=== PATIENT | female | born 1960 | race Caucasian/White ===

== ENCOUNTER 2018-07-17 18:27 | Inpatient (IN) | payer MEDICARE ==
[2018-07-17 19:40] LABS: INR 1.04 (0.5-1.4); PROTHROMBIN TIME (TEST) 10.8 SECONDS (9.5-11.5)
[2018-07-17 19:47] LABS: ALBUMIN 3.3 gm/dL (3.7-5.3); ALKALINE PHOSPHATASE 122 U/L (34-104); ANION GAP 12.3 (7.0-16.0); BILIRUBIN,TOTAL 0.4 mg/dL (0.3-1.0); BUN - UREA NITROGEN 18 mg/dL (7-25); CALCIUM SERUM 8.6 mg/dL (8.6-10.3); CARBON DIOXIDE 31.8 mEq/L (21.0-31.0); CHLORIDE 72 mEq/L (98-107); GFR AFRICAN-AMERICAN > 60.0 ml/min (>90); GFR NON AFRICAN-AMERICAN > 60.0 ml/min; GLUCOSE 90 mg/dL (70-105); POTASSIUM SERUM 3.1 mEq/L (3.5-5.1); SGOT 17 U/L (13-39); SGPT/ALT 8 U/L (7-52); TOTAL PROTEIN,SERUM 6.7 gm/dL (6.0-8.3)
--- NOTE | 2018-07-17 19:47 | ED Physician Chart ---
ED Chief Complaint/HPI - Patient Information Date Seen:: 07/17/18 Time Seen:: 18:45 Chief Complaint:: weakness History of Present Illness:: THIS IS A 58 YO FEMALE SENT FROM THE [facility] FOR EVALUATION AND TREATMENT OF HER WEAKNESS. SHE HAS A HISTORY OF COPD, DM, HTN,CHF AND COLITIS. Allergies:: Allergies Allergy/AdvReac Type Severity Reaction Status Date / Time amoxicillin Allergy Verified 07/17/18 18:43 caffeine Allergy Verified 07/17/18 18:44 phenacetin Allergy Verified 07/17/18 18:44 Tetracyclines Allergy Verified 07/17/18 18:44 Vitals:: Vital Signs - 8 hr 07/17/18 18:30 Temp 96.3 F HR 86 RR 18 BP 106/69 O2 Sat % 95 Historian:: Patient, Medical Records Review:: Nurse's Note Reviewed, Old Chart Reviewed ED Review of Systems - Review of Systems General/Constitutional: No fever, No chills, No weight loss, Weakness, No diaphoresis, No edema, No loss of appetite Skin: No skin lesions, No rash, No bruising Head: No headache, No light-headedness Eyes: No loss of vision, No pain, No diplopia ENT: No earache, No nasal drainage, No sore throat, No tinnitus Neck: No neck pain, No swelling, No thyromegaly, No stiffness, No mass noted Cardio Vascular: No chest pain, No palpitations, No PND, No orthopnea, No edema Pulmonary: No SOB, Cough, No sputum, No wheezing GI: No nausea, No vomiting, No diarrhea, No pain, No melena, No hematochezia, No constipation, No hematemesis G/U: No dysuria, No frequency, No hematuria Musculoskeletal: No bone or joint pain, No back pain, No muscle pain Endocrine: No polyuria, No polydipsia Psychiatric: Prior psych history, No depression, No anxiety, No suicidal ideation Hematopoietic: No bruising, No lymphadenopathy Allergic/Immuno: No urticaria, No angioedema Neurological: No syncope, No focal symptoms, No weakness, No paresthesia, No headache, No seizure, No dizziness, No confusion, No vertigo ED Past Medical History - Past Medical History Obtainable: Yes Past Medical History: HTN, DM, CHF, Asthma/COPD, Dyslipidemia, Dementia Family History: None Social History: Smoker, No Alcohol, No Drug Use, Care Facility Surgical History: Appendectomy, Cholecystectomy, other (RIGHT OVARIAN SURGERY) Family Medical History - Family Member Mother History Unknown: Yes ED Physical Exam - Physical Examination General/Constitutional: Awake, Well-developed, well-nourished, Alert, No distress, GCS 15, Non-toxic appearing, Ambulatory Other Gen/Cons comments:: POORLY NOURISHED Head: Atraumatic Eyes: Lids, conjuctiva normal, PERRL, EOMI Skin: Nl inspection, No rash, No skin lesions, No ecchymosis, Well hydrated, No lymphadenopathy ENMT: External ears, nose nl, Nasal exam nl, Lips, teeth, gums nl Neck: Nontender, Full ROM w/o pain, No JVD, No nuchal rigidity, No bruit, No mass, No stridor Respiratory: Nl effort/Exclusion, Clear to Auscultation, No Wheeze/Rhonchi/ Rales (BILATERAL RHONCHI) Cardio Vascular: RRR, No murmur, gallop, rubs, NL S1 S2 GI: No tenderness/rebounding/guarding, No organomegaly, No hernia, Normal BS's, Nondistended, No mass/bruits, No McBurney tenderness : No CVA tenderness Extremities: No tenderness or effusion, Full ROM, normal strength in all extremities, No edema, Normal digits & nails Neuro/Psych: Alert/oriented, DTR's symmetric, Normal sensory exam, Normal motor strength, Judgement/insight normal, Mood normal, Normal gait, No focal deficits Misc: Normal back, No paraspinal tenderness ED Labs/Radiology/EKG Results - Radiology Results Results: CHEST X-RAY = RIGHT MIDDLE LOBE INFILTRATE - EKG Interpretations EKG Time:: 19:28 Rate & Rhythm: RATE= 89 SINUS Mercer: RIGHT AXIS ED Septic Shock - . Is Septic Shock (SBP<90, OR Lactate>4 mmol\L) present?: No - <6hrs of presentation: Vital Signs: Vital Signs - 8 hr 07/17/18 18:30 Temp 96.3 F HR 86 RR 18 BP 106/69 O2 Sat % 95 ED Reassessment (Disposition) - Diagnosis Diagnosis:: PNUEMONIA ELECTROLYTE IMBALANCE - Patient Disposition Discharge/Transfer:: Acute Care w/in this hosp Admitting Medical Physician:: Yusuf Wooten Condition at Disposition:: Improved
[2018-07-17 19:50] LABS: % BASOPHILS 0.6 % (0.0-2.0); % EOSINOPHILS 7.2 % (0.0-5.0); % LYMPHOCYTES 27.2 % (20.0-50.0); % MONOCYTES 6.4 % (2.0-10.0); % NEUTROPHILS 58.6 % (40.0-80.0); BASOPHILE ABSOLUTE 0.1 Th/cumm (0-0.2); EOSINOPHILE ABSOLUTE 0.8 Th/cmm (0.1-0.4); HEMATOCRIT 35.5 % (41.0-60); HEMOGLOBIN 11.5 gm/dL (12-16); LYMPHOCYTE ABSOLUTE 3.2 Th/cmm (1.5-3.0); MEAN CORPUSCULAR HGB CONC 32.3 pg (28.0-36.0); MEAN PLATELET VOLUME 8.2 fl; MONOCYTE ABSOLUTE 0.7 Th/cmm (0.3-1.0); NEUTROPHILE ABSOLUTE 6.8 Th/cmm (1.8-8.0); PLATELET COUNT 292 Th/cmm (150-400); RED BLOOD COUNT 3.82 Mil/cmm (3.80-5.10); RED CELL DISTRIBUTION WIDTH 14.4 % (11.5-20.0); WHITE BLOOD COUNT 11.6 Th/cmm (4.8-10.8)
[2018-07-17] MEDS ORDERED: Sodium Chloride 0.9% 1,000 ML IV ONE (20:05)
[2018-07-17 20:11] LABS: SODIUM SERUM 113 mEq/L (136-145)
[2018-07-17] MEDS ORDERED: Potassium Chloride Elixir 20 mEq /15 mL UDC PO ONE (20:14)
[2018-07-17] MEDS ORDERED: Potassium Chloride Elixir 20 mEq /15 mL UDC ONE (20:46)
[2018-07-17] MEDS ORDERED: Acetaminophen 500 MG TAB PO PRN (20:56)
[2018-07-17] MEDS ORDERED: CALCIUM CARBONATE PO SCH (21:00)
[2018-07-17] MEDS ORDERED: [UNRECOGNIZED DRUG - OTHER] PO SCH (21:00)
[2018-07-17] MEDS ORDERED: VITAMIN D3 PO SCH (21:00)
[2018-07-17] MEDS ORDERED: CLONAZEPAM PO SCH (21:00)
[2018-07-17] MEDS ORDERED: QUETIAPINE FUMARATE PO SCH (21:00)
[2018-07-17] MEDS ORDERED: Sodium Chloride 3% 250 ML IV ONE (22:00)
[2018-07-17 22:06] VITALS: BP 107/70
[2018-07-17] MEDS ORDERED: Sodium Chloride 3% 500 ML IV ONE (22:12)
[2018-07-17] MEDS: Hydrocodone/APAP 10 mg/325 mg Tab PO PRN (22:22)
[2018-07-17] MEDS: Multivitamin w/ Minerals Tab PO SCH (23:05)
[2018-07-18] MEDS ORDERED: Sodium Chloride 0.9% 1,000 ML IV ONE (03:30)
[2018-07-18 06:52] LABS: % BASOPHILS 0.5 % (0.0-2.0); % EOSINOPHILS 7.9 % (0.0-5.0); % LYMPHOCYTES 24.3 % (20.0-50.0); % MONOCYTES 6.9 % (2.0-10.0); % NEUTROPHILS 60.4 % (40.0-80.0); BASOPHILE ABSOLUTE 0.1 Th/cumm (0-0.2); EOSINOPHILE ABSOLUTE 0.8 Th/cmm (0.1-0.4); HEMATOCRIT 31.8 % (41.0-60); HEMOGLOBIN 10.6 gm/dL (12-16); LYMPHOCYTE ABSOLUTE 2.6 Th/cmm (1.5-3.0); MEAN CELL VOLUME 93.8 fl (81-100); MEAN CORPUSCULAR HEMOGLOBIN 31.2 pg (27.0-31.0); MEAN CORPUSCULAR HGB CONC 33.2 pg (28.0-36.0); MEAN PLATELET VOLUME 7.7 fl; MONOCYTE ABSOLUTE 0.7 Th/cmm (0.3-1.0); NEUTROPHILE ABSOLUTE 6.5 Th/cmm (1.8-8.0); PLATELET COUNT 293 Th/cmm (150-400); RED BLOOD COUNT 3.39 Mil/cmm (3.80-5.10); RED CELL DISTRIBUTION WIDTH 14.4 % (11.5-20.0); WHITE BLOOD COUNT 10.7 Th/cmm (4.8-10.8)
[2018-07-18 07:36] LABS: ANION GAP 10.4 (7.0-16.0); BUN - UREA NITROGEN 16 mg/dL (7-25); CALCIUM SERUM 8.2 mg/dL (8.6-10.3); CARBON DIOXIDE 31.3 mEq/L (21.0-31.0); CHLORIDE 85 mEq/L (98-107); CREATININE - SERUM 0.9 mg/dL (0.6-1.2); GFR AFRICAN-AMERICAN > 60.0 ml/min (>90); GFR NON AFRICAN-AMERICAN > 60.0 ml/min; GLUCOSE 88 mg/dL (70-105); POTASSIUM SERUM 3.7 mEq/L (3.5-5.1); SODIUM SERUM 123 mEq/L (136-145)
[2018-07-18] MEDS: Multivitamin w/ Minerals Tab PO SCH (08:12)
[2018-07-18] MEDS ORDERED: Calcium Carb/Vit D 500 mg/200 U Tab PO SCH (09:00)
[2018-07-18] MEDS: cefTRIAXone 1 GM in Sodium Chloride 0.9% 50 ML IV SCH (09:55)
--- NOTE | 2018-07-18 10:05 | Diagnostic Imaging Report ---
Chest x-ray single view History: Chest pain Comparison: None The heart size is normal. No focal pulmonary parenchymal processes. No hilar or mediastinal abnormalities. Right-sided PICC line terminates in superior vena cava. Impression: No acute abnormalities
[2018-07-18] MEDS: Hydrocodone/APAP 10 mg/325 mg Tab PO PRN ×2 (11:49→16:22)
[2018-07-18] MEDS: Maalox 30 mL Cup PO PRN (14:37)
[2018-07-18] MEDS: Sodium Chloride 0.9% 1,000 ML IV SCH (17:53)
--- NOTE | 2018-07-18 19:19 | Consultation ---
DATE OF CONSULTATION: 07/18/2018 LOCATION: [facility], room #16 ATTENDING PHYSICIAN: Dr. Yusuf Wooten. Thank you very much, Dr. Wooten for allowing me to participate in the management of this patient of yours. IDENTIFICATION: This is a 58-year-old female patient known to me from previous admission. She is a known case of severe ulcerative colitis with colostomy. The patient also has a history of recurrent hypotension, COPD, anemia, electrolyte imbalance, recurrent malnutrition and history of UTI and hypothyroidism. The patient has multiple admissions for malnutrition, many times she requires TPN due to severe malnutrition and ulcerative colitis. The patient is a resident of prison. The patient was brought in for severe weakness. The patient was found to have severe hyponatremia, hypotension. The patient received 3% normal saline. Renal consultation has been requested. The patient is conscious and alert. She does complain of very weak and dizzy, especially when she is trying to sit up in the bed. The patient also complained of nausea, vomiting. No complaint of diarrhea or constipation. No complaint of fever or chills. No complaint of any hematuria anuria or dysuria. The patient states that for the last most 5-7 days, she has practically ate nothing but just drank water all the time. PAST MEDICAL AND SURGICAL HISTORY: As stated above, history of recurrent ulcerative colitis and related problems, malnutrition, history of many times PICC line insertion, history of COPD, hypothyroidism, anemia, history of UTI, sepsis, colostomy. SOCIAL HISTORY: No history of alcoholism or smoking. Lives in a prison. No history of drug use. PHYSICAL EXAMINATION: VITAL SIGNS: Temperature 96.7, pulse 90, blood pressure was as low as 77/50, now is improved to 98/51, respiration rate 18. Intake only 370 mL today. HEENT: Head normocephalic, atraumatic. Eyes, sclerae is nonicteric. Conjunctivae are pale. Pupils are reactive. NECK: No stiffness. Jugular venous pressure normal. No carotid bruit. EAR, NOSE, THROAT: No bleeding or discharge. LUNGS: Good air entry. No rales or rhonchi. HEART: Regular. No rub or gallop. ABDOMEN: Soft, not distended. Bowel sounds present. No flank tenderness. EXTREMITIES: No edema of the legs. No calf tenderness. The patient has obvious muscle mass wasting. LABORATORY DATA: WBC 11.6, hemoglobin 11.5, sodium 113, potassium 3.1, chloride 72, CO2 31, glucose 90, calcium 8.6, albumin 3.3. ASSESSMENT: 1. Severe hyponatremia. 2. Hypokalemia. 3. Anemia. 4. Malnutrition. 5. Hypotension. 6. Ulcerative colitis. 7. Rule out hypothyroidism. PLAN: Obtain T3, TSH. Obtain urinalysis. The patient has been treated with 3% normal saline. Start the patient on TPN. Start the patient on Zofran p.r.n. Obtain CMP, phosphorus, magnesium, CBC differential in the morning. Obtain iron studies. Case has been discussed with patient and Dr. Wooten at length. I will follow this patient with you. JOB# [id number]
[2018-07-19] MEDS ORDERED: Dextrose 10% 1,000 ML IV SCH (00:15)
[2018-07-19] MEDS: Hydrocodone/APAP 10 mg/325 mg Tab PO PRN ×2 (02:24→09:09)
[2018-07-19] MEDS: Maalox 30 mL Cup PO PRN (02:27)
--- NOTE | 2018-07-19 04:17 | History & Physical ---
ADMIT DATE: 07/17/2018 CHIEF COMPLAINT: Severe hyponatremia. HISTORY OF PRESENT ILLNESS: This is a 58-year-old female with an underlying history of ulcerative colitis, chronic hyponatremia, ulcerative colitis status post ileostomy, chronic pain syndrome, and nicotine dependency who lives at a nursing facility and started having nausea, poor p.o. intake, and not feeling well. The patient had lab work ordered at the [facility]. Sodium came back at 113. So, the patient was transferred to the Emergency and subsequently admitted to our service. The morning after sodium supplements, the patient's sodium seems to be a little better up to 123. The patient denies any diarrhea, no vomiting. Still having poor p.o. intake. PAST MEDICAL HISTORY: As per HPI. PAST SURGICAL HISTORY: Multiple abdominal surgeries in the past. FAMILY HISTORY: Noncontributory. SOCIAL HISTORY: Chronic cigarette smoker. No alcohol or drug use. CURRENT MEDICATION: Per medication reconciliation. ALLERGIES: AMOXICILLIN, CAFFEINE, TETRACYCLINE, FINASTERIDE. REVIEW OF SYSTEMS: As per HPI, 12-point system is negative. PHYSICAL EXAMINATION: VITAL SIGNS: Temperature 97.2, pulse 94, respirations 18, ____ 97% on room air. Pain 0/10. GENERAL APPEARANCE: The patient does not seem in acute distress. HEART: S1 and S2 are normal. LUNGS: Clear. ABDOMEN: Soft. Nontender. NEUROLOGIC: Follow commands. Move all extremities. Negative for edema. AVAILABLE LABORATORY DATA: Has been reviewed. ASSESSMENT: 1. Severe hyponatremia. 2. Ulcerative colitis. 3. Chronic pain syndrome. 4. ____. 5. Mental disorder. 6. Generalized debility. PLAN: The patient admitted to tele unit. The patient has received 3% sodium chloride 250 mL. Subsequently, the patient was continued on normal saline. Nephrology consulted. Case discussed with Nephrology. GI also consulted. The patient has been having chronic sodium loss, most likely due to underlying ulcerative colitis. We will discuss with GI if any further treatment has been recommended. Follow sodium and other electrolytes closely. Follow specialty's recommendations. Home medications to continue. Discussed with the patient regarding the condition and plan of care with nursing staff. JOB# [id number]
[2018-07-19 06:43] LABS: % BASOPHILS 0.4 % (0.0-2.0); % EOSINOPHILS 10.9 % (0.0-5.0); % LYMPHOCYTES 28.4 % (20.0-50.0); % NEUTROPHILS 52.3 % (40.0-80.0); EOSINOPHILE ABSOLUTE 0.9 Th/cmm (0.1-0.4); HEMOGLOBIN 9.2 gm/dL (12-16); LYMPHOCYTE ABSOLUTE 2.5 Th/cmm (1.5-3.0); MEAN CELL VOLUME 92.9 fl (81-100); MEAN CORPUSCULAR HEMOGLOBIN 30.4 pg (27.0-31.0); MEAN CORPUSCULAR HGB CONC 32.7 pg (28.0-36.0); MEAN PLATELET VOLUME 7.7 fl; MONOCYTE ABSOLUTE 0.7 Th/cmm (0.3-1.0); NEUTROPHILE ABSOLUTE 4.6 Th/cmm (1.8-8.0); PLATELET COUNT 291 Th/cmm (150-400); RED BLOOD COUNT 3.02 Mil/cmm (3.80-5.10); RED CELL DISTRIBUTION WIDTH 14.9 % (11.5-20.0); WHITE BLOOD COUNT 8.7 Th/cmm (4.8-10.8)
[2018-07-19 07:03] LABS: ALBUMIN 2.6 gm/dL (3.7-5.3); ALKALINE PHOSPHATASE 101 U/L (34-104); ANION GAP 9.5 (7.0-16.0); BILIRUBIN,TOTAL 0.3 mg/dL (0.3-1.0); BUN - UREA NITROGEN 10 mg/dL (7-25); CALCIUM SERUM 7.3 mg/dL (8.6-10.3); CARBON DIOXIDE 31.3 mEq/L (21.0-31.0); CHLORIDE 91 mEq/L (98-107); CREATININE - SERUM 0.6 mg/dL (0.6-1.2); GFR AFRICAN-AMERICAN > 60.0 ml/min (>90); GFR NON AFRICAN-AMERICAN > 60.0 ml/min; GLUCOSE 82 mg/dL (70-105); MAGNESIUM 1.4 mg/dL (1.9-2.7); PHOSPHOROUS 2.6 mg/dL (2.5-5.0); SGOT 12 U/L (13-39); SGPT/ALT 6 U/L (7-52); SODIUM SERUM 129 mEq/L (136-145); TOTAL PROTEIN,SERUM 5.3 gm/dL (6.0-8.3)
[2018-07-19 07:24] LABS: POTASSIUM SERUM 2.8 mEq/L (3.5-5.1)
[2018-07-19 08:53] LABS: CHOLESTEROL 81 mg/dL (<200); TRIGLYCERIDES 60 mg/dL (<150)
[2018-07-19] MEDS: KCL 20mEq/100mL Premix 20 MEQ/100 ML PIGGYBACK IV SCH ×2 (08:55→10:38)
[2018-07-19] MEDS: Sodium Chloride 0.9% 1,000 ML IV SCH (08:55)
[2018-07-19] MEDS: cefTRIAXone 1 GM in Sodium Chloride 0.9% 50 ML IV SCH (08:58)
[2018-07-19] MEDS: Multivitamin w/ Minerals Tab PO SCH (09:12)
[2018-07-19] MEDS ORDERED: Mag Sulfate 2gm/50mL Premix 2 GM/50 ML BAG IV ONE (10:00)
--- NOTE | 2018-07-19 11:55 | General Progress Note ---
Subjective - Review of Systems Service Date: 07/19/18 Subjective: Patient sleeping sodium seems better Objective - Results Result Diagrams: 07/19/18 06:15 07/19/18 06:15 Recent Labs: Laboratory Last Values WBC 8.7 Th/cmm (4.8-10.8) 07/19/18 06:15 RBC 3.02 Mil/cmm (3.80-5.10) L 07/19/18 06:15 Hgb 9.2 gm/dL (12-16) L 07/19/18 06:15 Hct 28.0 % (41.0-60) L 07/19/18 06:15 MCV 92.9 fl (81-100) 07/19/18 06:15 MCH 30.4 pg (27.0-31.0) 07/19/18 06:15 MCHC Differential 32.7 pg (28.0-36.0) 07/19/18 06:15 RDW 14.9 % (11.5-20.0) 07/19/18 06:15 Plt Count 291 Th/cmm (150-400) 07/19/18 06:15 MPV 7.7 fl 07/19/18 06:15 Neutrophils % 52.3 % (40.0-80.0) 07/19/18 06:15 Lymphocytes % 28.4 % (20.0-50.0) 07/19/18 06:15 Monocytes % 8.0 % (2.0-10.0) 07/19/18 06:15 Eosinophils % 10.9 % (0.0-5.0) H 07/19/18 06:15 Basophils % 0.4 % (0.0-2.0) 07/19/18 06:15 PT 10.8 SECONDS (9.5-11.5) 07/17/18 19:20 INR 1.04 (0.5-1.4) 07/17/18 19:20 Sodium 129 mEq/L (136-145) L 07/19/18 06:15 Potassium 2.8 mEq/L (3.5-5.1) L* 07/19/18 06:15 Chloride 91 mEq/L (98-107) L 07/19/18 06:15 Carbon Dioxide 31.3 mEq/L (21.0-31.0) H 07/19/18 06:15 Anion Gap 9.5 (7.0-16.0) 07/19/18 06:15 BUN 10 mg/dL (7-25) 07/19/18 06:15 Creatinine 0.6 mg/dL (0.6-1.2) 07/19/18 06:15 Est GFR ( Amer) > 60.0 ml/min (>90) 07/19/18 06:15 Est GFR (Non-Af Amer) > 60.0 ml/min 07/19/18 06:15 BUN/Creatinine Ratio 16.7 07/19/18 06:15 Glucose 82 mg/dL (70-105) 07/19/18 06:15 Calcium 7.3 mg/dL (8.6-10.3) L 07/19/18 06:15 Phosphorus 2.6 mg/dL (2.5-5.0) 07/19/18 06:15 Magnesium 1.4 mg/dL (1.9-2.7) L 07/19/18 06:15 Total Bilirubin 0.3 mg/dL (0.3-1.0) 07/19/18 06:15 AST 12 U/L (13-39) L 07/19/18 06:15 ALT 6 U/L (7-52) L 07/19/18 06:15 Alkaline Phosphatase 101 U/L (34-104) 07/19/18 06:15 Troponin I 0.02 ng/mL (0.01-0.05) 07/17/18 19:20 B-Natriuretic Peptide 10.1 pg/mL (5.0-100.0) 07/17/18 19:20 Total Protein 5.3 gm/dL (6.0-8.3) L 07/19/18 06:15 Albumin 2.6 gm/dL (3.7-5.3) L 07/19/18 06:15 Globulin 2.7 gm/dL 07/19/18 06:15 Albumin/Globulin Ratio 1.0 (1.0-1.8) 07/19/18 06:15 Triglycerides 60 mg/dL (<150) 07/19/18 06:15 Cholesterol 81 mg/dL (<200) 07/19/18 06:15 TSH 0.38 uIU/ml (0.34-5.60) 07/19/18 06:15 - Physical Exam Vitals and I&O: Vital Signs Temp 98.0 F 07/19/18 08:00 Pulse 83 07/19/18 08:00 Resp 16 07/19/18 10:23 BP 86/58 07/19/18 08:00 Pulse Ox 99 07/19/18 08:00 Intake & Output 07/18/18 07/19/18 07/19/18 18:59 06:59 18:59 Intake Total 50 1000 455.833 Output Total 600 Balance 50 1000 -144.167 Weight (lbs) 58.06 kg 58.06 kg Intake: Intake, IV Amount 50 1000 135.833 KCL 20mEq/100mL Premix 20 85.833 meq In 100 ml @ 50 mls/ hr IV Q2H [facility] Rx#: [id number] Sodium Chloride 0.9% 1, 1000 000 ml @ 80 mls/hr IV . [id number] [facility] Rx#:[id number] cefTRIAXone 1 gm In 50 50 Sodium Chloride 0.9% 50 ml @ 100 mls/hr IV Q24HR [facility] Rx#:[id number] Oral 320 Output: Stool 600 Other: # Voids 3 Stool Characteristics Soft Soft Soft Liquid Liquid Liquid Weight Source Bedscale Bedscale Active Medications: Current Medications Acetaminophen (Tylenol Extra Strength) 1 mg PO Q4HR PRN PRN Reason: Pain (Mild) Stop: 09/15/18 20:55 Acetaminophen/Hydrocodone Bitart ([place] 10 Mg/325 Mg) 1 tab PO Q4HR PRN PRN Reason: Pain (Moderate) Stop: 09/15/18 20:55 Last Admin: 07/19/18 09:09 Dose: 1 tab Al Hydrox/Mg Hydrox/Simethicone (Maalox) 30 ml PO Q6HR PRN PRN Reason: Heartburn Stop: 09/15/18 20:55 Last Admin: 07/19/18 02:27 Dose: 30 ml Calcium Carbonate (Os-Cristofer) 1,000 mg PO BID [facility] Stop: 09/16/18 16:59 Last Admin: 07/19/18 09:12 Dose: 1,000 mg Clonazepam (Klonopin) 0.5 mg PO BID [facility]; Protocol Stop: 09/17/18 08:59 Last Admin: 07/19/18 09:12 Dose: 0.5 mg Clonazepam (Klonopin) 0.5 mg PO BID [facility] Stop: 09/15/18 20:59 Fludrocortisone Acetate (Florinef) 0.1 mg PO DAILY [facility] Stop: 09/15/18 20:59 Last Admin: 07/19/18 09:12 Dose: 0.1 mg Fluvoxamine Maleate (Luvox) 25 mg PO BID [facility]; Protocol Stop: 09/15/18 20:59 Last Admin: 07/19/18 10:40 Dose: 25 mg Ceftriaxone Sodium 1 gm/ (Sodium Chloride) 50 mls @ 100 mls/hr IV Q24HR [facility] Stop: 09/15/18 09:59 Last Infusion: 07/19/18 09:28 Dose: Infused Sodium Chloride (Nacl 0.9%) 1,000 mls @ 80 mls/hr IV .[id number] [facility] Stop: 09/16/18 17:29 Last Admin: 07/19/18 08:55 Dose: 80 mls/hr Dextrose (Dextrose 10%) 1,000 mls @ 40 mls/hr IV .Q24H [facility] Stop: 07/19/18 23:59 Magnesium Sulfate (Magnesium Sulfate Premix) 2 gm in 50 mls @ 25 mls/hr IV ONCE ONE Stop: 07/19/18 11:59 Last Admin: 07/19/18 10:40 Dose: 25 mls/hr Metoclopramide HCl (Reglan) 5 mg PO TID PRN PRN Reason: Nausea / Vomiting Stop: 09/15/18 20:55 Last Admin: 07/18/18 18:01 Dose: 5 mg Midodrine (Proamatine) 10 mg PO BID [facility] Stop: 09/17/18 08:59 Last Admin: 07/19/18 09:12 Dose: 10 mg Miscellaneous (Tpn Per Pharmacy) 1 ea [facility] PRN PRN PRN Reason: PROTOCOL Stop: 09/16/18 18:26 Ondansetron HCl (Zofran) 4 mg IV Q6H PRN PRN Reason: Nausea / Vomiting Stop: 09/16/18 18:17 Last Admin: 07/19/18 09:06 Dose: 4 mg Quetiapine Fumarate (Seroquel) 100 mg PO DAILY [facility]; Protocol Stop: 09/15/18 20:59 Last Admin: 07/19/18 09:26 Dose: 100 mg Quetiapine Fumarate (Seroquel) 300 mg PO HS [facility]; Protocol Stop: 09/17/18 20:59 Sodium Chloride (Nacl Tab) 2 gm PO BID [facility] Stop: 09/16/18 16:59 Last Admin: 07/19/18 09:12 Dose: 2 gm Trazodone HCl (Desyrel) 200 mg PO HS [facility] Stop: 09/15/18 20:59 Trazodone HCl (Desyrel) 200 mg PO HS [facility]; Protocol Stop: 09/16/18 22:11 Last Admin: 07/18/18 22:42 Dose: 200 mg Cardiovascular: Regular rate Lungs: Clear to auscultation Assessment/Plan - Assessment Assessment: Hyponatremia Poor oral intake Weakness Ulcerative colitis Ileostomy in place Chronic pain syndrome Mental health disorder - Plan Plan: Nephrology recommended TPN Sodium slowly improving Continue current treatment Awaiting GI input
[2018-07-19] MEDS ORDERED: KCL 20mEq/100mL Premix 20 MEQ/100 ML PIGGYBACK IV ONE (15:00)
[2018-07-19] MEDS ORDERED: Menthol/Zinc Oxide Oint 113gm Tube TP PRN (15:09)
[2018-07-19] MEDS ORDERED: Sodium Chloride 0.9% 1,000 ML IV SCH (16:00)
[2018-07-19] MEDS ORDERED: Amino Acids 3% / Electrolytes 1,000 ML IV SCH (16:00)
--- NOTE | 2018-07-19 23:39 | Consultation ---
DATE OF CONSULTATION: 07/19/2018 INPATIENT GASTROINTESTINAL CONSULTATION CONSULTING PHYSICIAN: Dr. Wooten. REASON FOR CONSULTATION: Ulcerative colitis, poor p.o. intake. HISTORY OF PRESENT ILLNESS: The patient is a 58-year-old female well known to our service, history of ulcerative colitis, status post total colectomy and end ileostomy, chronic kidney disease with hyponatremia, chronic abdominal pain, admitted to the hospital with acute on chronic hyponatremia. This patient is well known to us. She has been followed at [facility] as well as at [facility] in her previous admissions. She has a history of ulcerative colitis, but she had a total colectomy remotely. She has an ileostomy in place; the ileostomy did have issues late in 2018, specifically with a hernia that required surgical revision by Dr. Walsh at [facility]. Since that time, her ostomy has been working okay, although the patient has been mainly suffering with poor p.o. intake and hyponatremia. During our previous encounters with this patient she is adamant against any sort of feeding tube and has been on chronic TPN in the past. At the current time, she notes that the TPN was offered about a month now, but she thinks that it might have to be turned back on it. She has not been eating well. She denies any blood in her ostomy, any diarrhea or any vomiting. 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 PAST MEDICAL HISTORY: Ulcerative colitis, chronic kidney disease, chronic abdominal pain. PAST SURGICAL HISTORY: Total colectomy in the past. She has had ostomy revision with Dr. Walsh in 2018. FAMILY HISTORY: Noncontributory. SOCIAL HISTORY: The patient lives in a nursing facility. She smokes cigarettes on daily basis. No other illicit drugs. ALLERGIES: Reported allergy to AMOXICILLIN, CAFFEINE, TETRACYCLINE and FINASTERIDE. REVIEW OF SYSTEMS: A 12-point review of systems was performed with the patient is negative other than the pertinent positives as mentioned in the history of present illness. CURRENT MEDICATIONS: Tylenol, [place], Maalox, calcium, ceftriaxone, Klonopin, IV fluids, fludrocortisone, fluvoxamine, Reglan on p.r.n. basis, midodrine, Zofran, Seroquel, trazodone. PHYSICAL EXAMINATION: VITAL SIGNS: Blood pressure is 89/52, pulse 80 beats per minute, temperature 97.3, oxygenation 95%. GENERAL: The patient is lying on her back. She is at 30 degrees. She is alert and oriented x 3, although drowsy. HEAD, EYES, EARS, NOSE AND THROAT: Normocephalic, atraumatic appearing head. Pupils are equal and reactive to light. Extraocular muscles are intact. Moist mucous membranes. NECK: Supple. No JVD or thyromegaly. CHEST: Clear to auscultation bilaterally. CARDIOVASCULAR: S1, S2 are present, regular rate and rhythm. ABDOMEN: Thin, soft. There are multiple surgical scars. There is an ostomy in the right lower quadrant that does not appear to be inflamed. The bag contains liquid stool. EXTREMITIES: Frail, no pitting edema. Pulses are present. SKIN: There is no obvious jaundice. LABORATORY DATA: White blood cell count is 8.7, hemoglobin 9.2, platelet count is 291. INR is 1.04. Sodium was 129, on admission it was 113, BUN 10, creatinine is 0.6, AST is 12, ALT 6, total bilirubin 0.3. IMAGING: No abdominal imaging has been performed. IMPRESSION: This is a 58-year-old female with history of ulcerative colitis, status post total colectomy in the past who has end ileostomy that required revision in the past, admitted to the hospital with acute on chronic hyponatremia. 1. Ulcerative colitis, status post total colectomy. 2. End ileostomy. 3. Acute on chronic hyponatremia. 4. Chronic abdominal pain. DISCUSSION: I presume that the patient's hyponatremia may be due to poor p.o. intake and dehydration. This is quickly resolved over the past 2 days with fluids. In terms of her ulcerative colitis, this has been quiescent for some time as the patient has already had surgery on her colon and the colon has been removed. She does not have any evidence of transition to Crohn's disease. She has no blood in her ostomy or issues with diarrhea. 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 In our previous encounters I have spoken to the patient at length about appetite stimulants, feeding tube since she has been adamant against trying any of this. She prefers to be on TPN and eat supplementally. RECOMMENDATIONS: 1. No indication for endoscopy at this time given the patient's inflammatory bowel disease is quiescent. 2. Encourage p.o. intake. In the past I have offered her Megace and feeding tubes and she has declined and continues to do so. 3. Management of the hyponatremia as per primary and Nephrology. 4. She has narcotic bowel syndrome and the treatment for this is slow weaning of narcotics, although this is likely to be near impossible in this particular patient. We will continue to follow. Thank you for allowing us to participate in her care. Please call with any further questions. JOB# [id number]
--- NOTE | 2018-07-20 01:39 | Progress Notes ---
DATE: 07/19/2018 LOCATION: [facility]. Room 18. Bed D. PHYSICAL EXAMINATION: GENERAL: The patient is conscious, alert, not eating due to anorexia. Diarrhea is decreasing. VITAL SIGNS: Temperature 97.0, pulse 89, blood pressure 82/50, respirations 18. Yesterday's intake 1050. HEART: Regular. LUNGS: Clear. ABDOMEN: Soft, not distended. No tenderness. Bowel sounds present. EXTREMITIES: No edema. LABORATORY DATA: WBC 8.7, hemoglobin dropped to 9.2, sodium 129, improved from 123, potassium 2.8, chloride 91, CO2 of 31, calcium 7.3, magnesium 1.4. ASSESSMENT: 1. Hypokalemia. 2. Hypomagnesemia. 3. Hyponatremia, improving. 4. Acute kidney injury, improving. 5. Worsening of anemia. 6. Ulcerative colitis. 7. Hypotension. 8. Malnutrition. 9. History of ulcerative colitis. PLAN: IV magnesium sulfate and IV KCl rider will be given today. Lab will be done tomorrow. The patient will benefit with TPN. Discussed with the patient and nursing staff. JOB# [id number]
[2018-07-20] MEDS: Hydrocodone/APAP 10 mg/325 mg Tab PO PRN (06:22)
[2018-07-20 06:39] LABS: % BASOPHILS 3.1 % (0.0-2.0); % LYMPHOCYTES 25.8 % (20.0-50.0); % MONOCYTES 9.2 % (2.0-10.0); % NEUTROPHILS 53.9 % (40.0-80.0); BASOPHILE ABSOLUTE 0.3 Th/cumm (0-0.2); EOSINOPHILE ABSOLUTE 0.8 Th/cmm (0.1-0.4); HEMATOCRIT 30.3 % (41.0-60); HEMOGLOBIN 10.3 gm/dL (12-16); LYMPHOCYTE ABSOLUTE 2.7 Th/cmm (1.5-3.0); MEAN CELL VOLUME 91.5 fl (81-100); MEAN CORPUSCULAR HEMOGLOBIN 31.2 pg (27.0-31.0); MEAN CORPUSCULAR HGB CONC 34.1 pg (28.0-36.0); MEAN PLATELET VOLUME 7.7 fl; NEUTROPHILE ABSOLUTE 5.8 Th/cmm (1.8-8.0); PLATELET COUNT 332 Th/cmm (150-400); RED BLOOD COUNT 3.32 Mil/cmm (3.80-5.10); RED CELL DISTRIBUTION WIDTH 14.9 % (11.5-20.0)
[2018-07-20 06:42] LABS: WHITE BLOOD COUNT 10.6 Th/cmm (4.8-10.8)
[2018-07-20 06:51] LABS: ALBUMIN 2.8 gm/dL (3.7-5.3); ALKALINE PHOSPHATASE 110 U/L (34-104); ANION GAP 10.6 (7.0-16.0); BILIRUBIN,TOTAL 0.3 mg/dL (0.3-1.0); BUN - UREA NITROGEN 9 mg/dL (7-25); CALCIUM SERUM 8.4 mg/dL (8.6-10.3); CARBON DIOXIDE 32.4 mEq/L (21.0-31.0); CHLORIDE 89 mEq/L (98-107); CREATININE - SERUM 0.7 mg/dL (0.6-1.2); GFR AFRICAN-AMERICAN > 60.0 ml/min (>90); GFR NON AFRICAN-AMERICAN > 60.0 ml/min; GLUCOSE 103 mg/dL (70-105); MAGNESIUM 2.2 mg/dL (1.9-2.7); PHOSPHOROUS 2.4 mg/dL (2.5-5.0); SGOT 12 U/L (13-39); SGPT/ALT 4 U/L (7-52); SODIUM SERUM 128 mEq/L (136-145); TOTAL PROTEIN,SERUM 5.7 gm/dL (6.0-8.3)
[2018-07-20 08:11] LABS: IRON LC 47 ug/dL (27-159); TIBC (LC) 157 ug/dL (250-450); UIBC 110 ug/dL (131-425)
--- NOTE | 2018-07-20 08:45 | GI Progress Note ---
Subjective - Review of Systems Service Date: 07/20/18 Subjective: Up late last night, tired this morning. Eating 40% meals Objective - Results Result Diagrams: 07/20/18 06:15 07/20/18 06:15 Recent Labs: Laboratory Last Values WBC 10.6 Th/cmm (4.8-10.8) D 07/20/18 06:15 RBC 3.32 Mil/cmm (3.80-5.10) L 07/20/18 06:15 Hgb 10.3 gm/dL (12-16) L 07/20/18 06:15 Hct 30.3 % (41.0-60) L 07/20/18 06:15 MCV 91.5 fl (81-100) 07/20/18 06:15 MCH 31.2 pg (27.0-31.0) H 07/20/18 06:15 MCHC Differential 34.1 pg (28.0-36.0) 07/20/18 06:15 RDW 14.9 % (11.5-20.0) 07/20/18 06:15 Plt Count 332 Th/cmm (150-400) 07/20/18 06:15 MPV 7.7 fl 07/20/18 06:15 Neutrophils % 53.9 % (40.0-80.0) 07/20/18 06:15 Lymphocytes % 25.8 % (20.0-50.0) 07/20/18 06:15 Monocytes % 9.2 % (2.0-10.0) 07/20/18 06:15 Eosinophils % 8.0 % (0.0-5.0) H 07/20/18 06:15 Basophils % 3.1 % (0.0-2.0) H 07/20/18 06:15 PT 10.8 SECONDS (9.5-11.5) 07/17/18 19:20 INR 1.04 (0.5-1.4) 07/17/18 19:20 Sodium 128 mEq/L (136-145) L 07/20/18 06:15 Potassium 4.0 mEq/L (3.5-5.1) 07/20/18 06:15 Chloride 89 mEq/L (98-107) L 07/20/18 06:15 Carbon Dioxide 32.4 mEq/L (21.0-31.0) H 07/20/18 06:15 Anion Gap 10.6 (7.0-16.0) 07/20/18 06:15 BUN 9 mg/dL (7-25) 07/20/18 06:15 Creatinine 0.7 mg/dL (0.6-1.2) 07/20/18 06:15 Est GFR ( Amer) > 60.0 ml/min (>90) 07/20/18 06:15 Est GFR (Non-Af Amer) > 60.0 ml/min 07/20/18 06:15 BUN/Creatinine Ratio 12.9 07/20/18 06:15 Glucose 103 mg/dL (70-105) 07/20/18 06:15 Calcium 8.4 mg/dL (8.6-10.3) L 07/20/18 06:15 Phosphorus 2.4 mg/dL (2.5-5.0) L 07/20/18 06:15 Magnesium 2.2 mg/dL (1.9-2.7) 07/20/18 06:15 Iron 47 ug/dL (27-159) 07/19/18 06:15 TIBC 157 ug/dL (250-450) L 07/19/18 06:15 Iron Saturation 30 % (15-55) 07/19/18 06:15 Unsaturated IBC 110 ug/dL (131-425) L 07/19/18 06:15 Total Bilirubin 0.3 mg/dL (0.3-1.0) 07/20/18 06:15 AST 12 U/L (13-39) L 07/20/18 06:15 ALT 4 U/L (7-52) L 07/20/18 06:15 Alkaline Phosphatase 110 U/L (34-104) H 07/20/18 06:15 Troponin I 0.02 ng/mL (0.01-0.05) 07/17/18 19:20 B-Natriuretic Peptide 10.1 pg/mL (5.0-100.0) 07/17/18 19:20 Total Protein 5.7 gm/dL (6.0-8.3) L 07/20/18 06:15 Albumin 2.8 gm/dL (3.7-5.3) L 07/20/18 06:15 Globulin 2.9 gm/dL 07/20/18 06:15 Albumin/Globulin Ratio 1.0 (1.0-1.8) 07/20/18 06:15 Triglycerides 60 mg/dL (<150) 07/19/18 06:15 Cholesterol 81 mg/dL (<200) 07/19/18 06:15 Free T3 1.2 pg/mL (2.0-4.4) L 07/19/18 06:15 TSH 0.38 uIU/ml (0.34-5.60) 07/19/18 06:15 - Physical Exam Vitals and I&O: Vital Signs Temp 98.5 F 07/20/18 00:00 Pulse 88 07/20/18 06:50 Resp 18 07/20/18 08:00 BP 99/60 07/20/18 00:00 Pulse Ox 96 07/20/18 06:50 Intake & Output 07/19/18 07/20/18 07/20/18 18:59 06:59 18:59 Intake Total 455.833 50 Output Total 600 150 Balance -144.167 -100 Weight (lbs) 58.06 kg 58.06 kg Intake: Intake, IV Amount 135.833 KCL 20mEq/100mL Premix 20 85.833 meq In 100 ml @ 50 mls/ hr IV Q2H [facility] Rx#: [id number] cefTRIAXone 1 gm In 50 Sodium Chloride 0.9% 50 ml @ 100 mls/hr IV Q24HR [facility] Rx#:[id number] Oral 320 50 Output: Stool 600 150 Other: # Voids 3 3 Stool Characteristics Soft Soft Soft Liquid Liquid Liquid Weight Source Bedscale Bedscale Active Medications: Current Medications Acetaminophen (Tylenol Extra Strength) 1 mg PO Q4HR PRN PRN Reason: Pain (Mild) Stop: 09/15/18 20:55 Acetaminophen/Hydrocodone Bitart ([place] 10 Mg/325 Mg) 1 tab PO Q4HR PRN PRN Reason: Pain (Moderate) Stop: 09/15/18 20:55 Last Admin: 07/20/18 06:22 Dose: 1 tab Al Hydrox/Mg Hydrox/Simethicone (Maalox) 30 ml PO Q6HR PRN PRN Reason: Heartburn Stop: 09/15/18 20:55 Last Admin: 07/19/18 02:27 Dose: 30 ml Calamine/Phenol (Calmoseptine) 1 appl TP QID PRN PRN Reason: Skin Irritation Stop: 09/17/18 15:08 Calcium Carbonate (Os-Cristofer) 1,000 mg PO BID [facility] Stop: 09/16/18 16:59 Last Admin: 07/19/18 17:12 Dose: 1,000 mg Clonazepam (Klonopin) 0.5 mg PO BID [facility]; Protocol Stop: 09/17/18 08:59 Last Admin: 07/19/18 17:12 Dose: 0.5 mg Fludrocortisone Acetate (Florinef) 0.1 mg PO DAILY [facility] Stop: 09/15/18 20:59 Last Admin: 07/19/18 09:12 Dose: 0.1 mg Fluvoxamine Maleate (Luvox) 25 mg PO BID [facility]; Protocol Stop: 09/15/18 20:59 Last Admin: 07/19/18 17:19 Dose: 25 mg Ceftriaxone Sodium 1 gm/ (Sodium Chloride) 50 mls @ 100 mls/hr IV Q24HR [facility] Stop: 09/15/18 09:59 Last Infusion: 07/19/18 09:28 Dose: Infused Amino Acids/Electrolytes (Procalamine) 1,000 mls @ 40 mls/hr IV .Q24H [facility] Stop: 09/17/18 15:59 Last Admin: 07/19/18 15:35 Dose: 40 mls/hr Sodium Chloride (Nacl 0.9%) 1,000 mls @ 40 mls/hr IV .Q24H [facility] Stop: 09/17/18 15:59 Last Admin: 07/19/18 15:37 Dose: 40 mls/hr Metoclopramide HCl (Reglan) 5 mg PO TID PRN PRN Reason: Nausea / Vomiting Stop: 09/15/18 20:55 Last Admin: 07/19/18 14:24 Dose: 5 mg Midodrine (Proamatine) 10 mg PO BID [facility] Stop: 09/17/18 08:59 Last Admin: 07/19/18 17:13 Dose: 10 mg Miscellaneous (Tpn Per Pharmacy) 1 ea MC PRN PRN PRN Reason: PROTOCOL Stop: 09/16/18 18:26 Ondansetron HCl (Zofran) 4 mg IV Q6H PRN PRN Reason: Nausea / Vomiting Stop: 09/16/18 18:17 Last Admin: 07/19/18 17:12 Dose: 4 mg Quetiapine Fumarate (Seroquel) 100 mg PO DAILY [facility]; Protocol Stop: 09/15/18 20:59 Last Admin: 07/19/18 09:26 Dose: 100 mg Quetiapine Fumarate (Seroquel) 300 mg PO HS [facility]; Protocol Stop: 09/17/18 20:59 Last Admin: 07/19/18 21:43 Dose: 300 mg Sodium Chloride (Nacl Tab) 2 gm PO BID [facility] Stop: 09/16/18 16:59 Last Admin: 07/19/18 17:14 Dose: 2 gm Trazodone HCl (Desyrel) 200 mg PO HS [facility]; Protocol Stop: 09/16/18 22:11 Last Admin: 07/19/18 21:43 Dose: 200 mg General: Alert, Oriented x3 Cardiovascular: Regular rate Abdomen: Bowel sounds, Soft, Other, no Tender, no Hepatomegaly, no Distended, no Rebound, no Mass Extremities: no Clubbing Psych/Mental Status: Mental status NL Other physical findings: ileostomy intact Assessment/Plan - Assessment Assessment: # Hx UC, s/p total colectomy with ileostomy. # Ileostomy revision in 2018 at [facility] due to hernia # Anorexia # Chronic pain, narcotic bowel syndrome UC is not active, and she does not have a colon left. No evidence of transition to Crohn's disease. Pt with chronic pain, opiate dependence. Her pain threshold is altered from chronic use, she is effectively addicted. Poor po intake is chronic issue for this pt. We have offered her feeding tubes in the past, and again now. She is adamantly against it. Plan: - cont to encourage po intake. She does not want a G tube or NG tube - she has refused megase - no need for steroids, UC is not active - reduce opiate intake if possible - PPN for now until she is taking better po
[2018-07-20] MEDS: Multivitamin w/ Minerals Tab PO SCH (10:33)
[2018-07-20] MEDS: cefTRIAXone 1 GM in Sodium Chloride 0.9% 50 ML IV SCH (10:45)
[2018-07-20] MEDS ORDERED: Sodium Phosphate 15 MMOLE in Sodium Chloride 0.9% 250 ML IV ONE (14:30)
[2018-07-20] MEDS: MULTIVITAMIN IV SCH (17:32)
[2018-07-20] MEDS: TRACE ELEMENT IV SCH (17:32)
[2018-07-20] MEDS: POTASSIUM PHOSPHATE IV SCH (17:32)
[2018-07-20] MEDS: Sodium Chloride 0.9% 1,000 ML IV SCH (17:32)
[2018-07-20] MEDS: [UNRECOGNIZED DRUG - OTHER] IV SCH (17:32)
--- NOTE | 2018-07-20 20:35 | General Progress Note ---
Subjective - Review of Systems Service Date: 07/20/18 Subjective: Patient awake doing ok denied any complaints Objective - Results Result Diagrams: 07/20/18 06:15 07/20/18 06:15 Recent Labs: Laboratory Last Values WBC 10.6 Th/cmm (4.8-10.8) D 07/20/18 06:15 RBC 3.32 Mil/cmm (3.80-5.10) L 07/20/18 06:15 Hgb 10.3 gm/dL (12-16) L 07/20/18 06:15 Hct 30.3 % (41.0-60) L 07/20/18 06:15 MCV 91.5 fl (81-100) 07/20/18 06:15 MCH 31.2 pg (27.0-31.0) H 07/20/18 06:15 MCHC Differential 34.1 pg (28.0-36.0) 07/20/18 06:15 RDW 14.9 % (11.5-20.0) 07/20/18 06:15 Plt Count 332 Th/cmm (150-400) 07/20/18 06:15 MPV 7.7 fl 07/20/18 06:15 Neutrophils % 53.9 % (40.0-80.0) 07/20/18 06:15 Lymphocytes % 25.8 % (20.0-50.0) 07/20/18 06:15 Monocytes % 9.2 % (2.0-10.0) 07/20/18 06:15 Eosinophils % 8.0 % (0.0-5.0) H 07/20/18 06:15 Basophils % 3.1 % (0.0-2.0) H 07/20/18 06:15 PT 10.8 SECONDS (9.5-11.5) 07/17/18 19:20 INR 1.04 (0.5-1.4) 07/17/18 19:20 Sodium 128 mEq/L (136-145) L 07/20/18 06:15 Potassium 4.0 mEq/L (3.5-5.1) 07/20/18 06:15 Chloride 89 mEq/L (98-107) L 07/20/18 06:15 Carbon Dioxide 32.4 mEq/L (21.0-31.0) H 07/20/18 06:15 Anion Gap 10.6 (7.0-16.0) 07/20/18 06:15 BUN 9 mg/dL (7-25) 07/20/18 06:15 Creatinine 0.7 mg/dL (0.6-1.2) 07/20/18 06:15 Est GFR ( Amer) > 60.0 ml/min (>90) 07/20/18 06:15 Est GFR (Non-Af Amer) > 60.0 ml/min 07/20/18 06:15 BUN/Creatinine Ratio 12.9 07/20/18 06:15 Glucose 103 mg/dL (70-105) 07/20/18 06:15 Calcium 8.4 mg/dL (8.6-10.3) L 07/20/18 06:15 Phosphorus 2.4 mg/dL (2.5-5.0) L 07/20/18 06:15 Magnesium 2.2 mg/dL (1.9-2.7) 07/20/18 06:15 Iron 47 ug/dL (27-159) 07/19/18 06:15 TIBC 157 ug/dL (250-450) L 07/19/18 06:15 Iron Saturation 30 % (15-55) 07/19/18 06:15 Unsaturated IBC 110 ug/dL (131-425) L 07/19/18 06:15 Total Bilirubin 0.3 mg/dL (0.3-1.0) 07/20/18 06:15 AST 12 U/L (13-39) L 07/20/18 06:15 ALT 4 U/L (7-52) L 07/20/18 06:15 Alkaline Phosphatase 110 U/L (34-104) H 07/20/18 06:15 Troponin I 0.02 ng/mL (0.01-0.05) 07/17/18 19:20 B-Natriuretic Peptide 10.1 pg/mL (5.0-100.0) 07/17/18 19:20 Total Protein 5.7 gm/dL (6.0-8.3) L 07/20/18 06:15 Albumin 2.8 gm/dL (3.7-5.3) L 07/20/18 06:15 Globulin 2.9 gm/dL 07/20/18 06:15 Albumin/Globulin Ratio 1.0 (1.0-1.8) 07/20/18 06:15 Triglycerides 60 mg/dL (<150) 07/19/18 06:15 Cholesterol 81 mg/dL (<200) 07/19/18 06:15 Free T3 1.2 pg/mL (2.0-4.4) L 07/19/18 06:15 TSH 0.38 uIU/ml (0.34-5.60) 07/19/18 06:15 - Physical Exam Vitals and I&O: Vital Signs Temp 98 F 07/20/18 16:00 Pulse 93 07/20/18 16:00 Resp 18 07/20/18 16:00 BP 102/69 07/20/18 16:00 Pulse Ox 92 07/20/18 16:00 Intake & Output 07/20/18 07/20/18 07/21/18 06:59 18:59 06:59 Intake Total 50 850 Output Total 150 1000 Balance -100 -150 Weight (lbs) 58.06 kg 58.06 kg Intake: Intake, IV Amount 50 cefTRIAXone 1 gm In 50 Sodium Chloride 0.9% 50 ml @ 100 mls/hr IV Q24HR [facility] Rx#:[id number] Oral 50 800 Output: Urine 1000 Stool 150 Other: # Voids 3 3 Stool Characteristics Soft Soft Liquid Liquid Weight Source Bedscale Bedscale Active Medications: Current Medications Acetaminophen (Tylenol Extra Strength) 500 mg PO Q4HR PRN PRN Reason: Pain (Mild) Stop: 09/15/18 20:55 Acetaminophen/Hydrocodone Bitart ([place] 10 Mg/325 Mg) 1 tab PO Q4HR PRN PRN Reason: Pain (Moderate) Stop: 09/15/18 20:55 Last Admin: 07/20/18 06:22 Dose: 1 tab Al Hydrox/Mg Hydrox/Simethicone (Maalox) 30 ml PO Q6HR PRN PRN Reason: Heartburn Stop: 09/15/18 20:55 Last Admin: 07/19/18 02:27 Dose: 30 ml Calamine/Phenol (Calmoseptine) 1 appl TP QID PRN PRN Reason: Skin Irritation Stop: 09/17/18 15:08 Calcium Carbonate (Os-Cristofer) 1,000 mg PO BID [facility] Stop: 09/16/18 16:59 Last Admin: 07/20/18 17:31 Dose: Not Given Clonazepam (Klonopin) 0.5 mg PO BID [facility]; Protocol Stop: 09/17/18 08:59 Last Admin: 07/20/18 17:31 Dose: 0.5 mg Fludrocortisone Acetate (Florinef) 0.1 mg PO DAILY [facility] Stop: 09/15/18 20:59 Last Admin: 07/20/18 10:32 Dose: 0.1 mg Fluvoxamine Maleate (Luvox) 25 mg PO BID [facility]; Protocol Stop: 09/15/18 20:59 Last Admin: 07/20/18 17:33 Dose: 25 mg Ceftriaxone Sodium 1 gm/ (Sodium Chloride) 50 mls @ 100 mls/hr IV Q24HR [facility] Stop: 09/15/18 09:59 Last Infusion: 07/20/18 11:15 Dose: Infused Sodium Chloride (Nacl 0.9%) 1,000 mls @ 10 mls/hr IV .Q24H [facility] Stop: 09/18/18 15:59 Last Admin: 07/20/18 17:32 Dose: 10 mls/hr Multivitamins/Minerals 5 ml/Potassium Phosphate 9 mmole/Chromium/Copper/ Manganese/Zinc 1.12 ml/ Sodium Chloride 150 meq/ Magnesium Sulfate 5 meq/ Potassium Acetate 61 meq/Potassium Chloride 30 meq/Calcium Gluconate 1 gm/ Dextrose/ Amino Acids/Electrolytes/ Fat Emulsion Intravenous/ Sterile Water 1, 680 mls @ 70 mls/hr IV .Q24H [facility] Stop: 08/18/18 15:59 Last Admin: 07/20/18 17:32 Dose: 70 mls/hr Metoclopramide HCl (Reglan) 5 mg PO TID PRN PRN Reason: Nausea / Vomiting Stop: 09/15/18 20:55 Last Admin: 07/19/18 14:24 Dose: 5 mg Midodrine (Proamatine) 10 mg PO BID [facility] Stop: 09/17/18 08:59 Last Admin: 07/20/18 17:30 Dose: 10 mg Miscellaneous (Tpn Per Pharmacy) 1 ea MC PRN PRN PRN Reason: PROTOCOL Stop: 09/16/18 18:26 Ondansetron HCl (Zofran) 4 mg IV Q6H PRN PRN Reason: Nausea / Vomiting Stop: 09/16/18 18:17 Last Admin: 07/19/18 17:12 Dose: 4 mg Quetiapine Fumarate (Seroquel) 100 mg PO DAILY [facility]; Protocol Stop: 09/15/18 20:59 Last Admin: 07/20/18 10:33 Dose: 100 mg Quetiapine Fumarate (Seroquel) 300 mg PO HS [facility]; Protocol Stop: 09/17/18 20:59 Last Admin: 07/19/18 21:43 Dose: 300 mg Sodium Chloride (Nacl Tab) 2 gm PO BID [facility] Stop: 09/16/18 16:59 Last Admin: 07/20/18 17:31 Dose: Not Given Trazodone HCl (Desyrel) 200 mg PO HS [facility]; Protocol Stop: 09/16/18 22:11 Last Admin: 07/19/18 21:43 Dose: 200 mg General: Alert, Oriented x3 Cardiovascular: Regular rate Lungs: Clear to auscultation Abdomen: Bowel sounds, Soft, Other, no Tender, no Hepatomegaly, no Distended, no Rebound, no Mass Extremities: no Clubbing Psych/Mental Status: Mental status NL Assessment/Plan - Assessment Assessment: Hyponatremia Poor oral intake Weakness Ulcerative colitis Ileostomy in place Chronic pain syndrome Mental health disorder - Plan Plan: Nephrology recommended TPN Sodium slowly improving Continue current treatment GI input noted and appreciated Patient doesn't want G tube LTAC eval. Plan of care discussed with the patient and nursing staff Nutritional Asmnt/Malnutr-PDOC - Dietary Evaluation Malnutrition Findings (Please click <Entered> for more info): Nutritional Asmnt/Malnutrition Start: 07/20/18 16: 35 Text: Status: Complete Freq: Protocol: Document 07/20/18 16:35 LCHENG (Rec: 07/20/18 16:45 [email or web address] [id number]) Nutritional Asmnt/Malnutrition Patient General Information Nutritional Screening High Risk Consult Diagnosis severe hyponatremia Pertinent Medical Hx/Surgical Hx COPD, DM, HTN, CHF, colitis Subjective Information Consult received for IA/ intertigines dermatitis buttocks. Pt seen sleeping in bed at time of visit, not answering RD greeting. Per SALES ACCOUNT EXECUTIVE , pt did not want to eat at breakfast and lunch as well, just ask SALES ACCOUNT EXECUTIVE to leave the tray at table. Per nurse, pt refused megace and Gtube. Pt started on TPN today. Per EMR, PO intake 25-50% yesterday. Current Diet Order/ Nutrition Support regular Pertinent Medications os-cristofer, seroqeul, nacl 0.9%, nacl tab, sidum phosphate Pertinent Labs 07/20 Na 128, Cl 89, Ca 8.4, Phos 2.4, alb 2.8 07/19 na 129, K 2.8, CL 91, Ca 7.3, Mg 1.4, alb 2.6 Nutritional Hx/Data Height 1.57 m Height (Calculated Centimeters) 157.5 Current Weight (lbs) 58.06 kg Weight (Calculated Kilograms) 58.1 Weight (Calculated Grams) 24755.8 [place] Body Weight 105 Body Mass Index (BMI) 23.3 Weight Status Approriate GI Symptoms GI Symptoms None Last BM not indicated Difficult in: None Skin Integrity/Comment: reddened to right buttocks and left buttocks Current %PO Poor (25-49%) Estimated Nutritional Goals BEE in Kcals: Using Current wt Calories/Kcals/Kg 25-30 Kcals Calculated 9070-0838 Protein: Using Current wt Protein g/k Protein Calculated 58 Fluid: ml 1450-1740ml (1ml/kcal) Nutritional Problem 2. Problem Problem altered nutrition related labs Etiology electrolytes imbalance Signs/Symptoms: Na 129, Cl 89, Ca 8.4, Phos 2. 4 1. Problem Problem inadequate food intake Etiology poor appetite Signs/Symptoms: PO intake < 50% Malnutrition Alert Is there a minimum of two criteria No selected? Query Text:Check all the applicable criteria. A minimum of two criteria are recommended for diagnosis of either severe or non-severe malnutrition. Malnutrition Related to Morbid Obesity Malnutrition related to morbid obesity No Intervention/Recommendation Comments 1. Continue with regular diet as ordered. Nurses to encourage oral intake. MD to replace electrolytes. 2. Continue with TPN to supplement nutrition intake if PO intake low 2. Monitor PO intake, nutrition support, wt, labs and skin integrity 3. F/U as high risk in 2-3 days Expected Outcomes/Goals Expected Outcomes/Goals 1. PO intake to improve, Pt to meet at least 75% of nutritional needs. 2. Wt stability, skin to remain intact, labs to approach WNL.
[2018-07-20] MEDS: Acetaminophen 500 MG TAB PO PRN (20:42)
[2018-07-20] MEDS ORDERED: Acetaminophen 500 MG TAB PO PRN (20:45)
[2018-07-21 06:50] LABS: ALB/GLOB RATIO 0.9 (1.0-1.8); ALBUMIN 2.6 gm/dL (3.7-5.3); ALKALINE PHOSPHATASE 93 U/L (34-104); BILIRUBIN,TOTAL 0.3 mg/dL (0.3-1.0); BUN - UREA NITROGEN 12 mg/dL (7-25); CALCIUM SERUM 8.4 mg/dL (8.6-10.3); CARBON DIOXIDE 30.7 mEq/L (21.0-31.0); CHLORIDE 89 mEq/L (98-107); CREATININE - SERUM 0.6 mg/dL (0.6-1.2); GFR AFRICAN-AMERICAN > 60.0 ml/min (>90); GFR NON AFRICAN-AMERICAN > 60.0 ml/min; MAGNESIUM 2.2 mg/dL (1.9-2.7); PHOSPHOROUS 6.2 mg/dL (2.5-5.0); POTASSIUM SERUM 4.7 mEq/L (3.5-5.1); SGOT 10 U/L (13-39); SGPT/ALT 4 U/L (7-52); SODIUM SERUM 127 mEq/L (136-145); TOTAL PROTEIN,SERUM 5.4 gm/dL (6.0-8.3)
[2018-07-21 07:05] LABS: GLUCOSE 422 mg/dL (70-105)
--- NOTE | 2018-07-21 08:44 | GI Progress Note ---
Subjective - Review of Systems Service Date: 07/21/18 Subjective: "I dont want to see you anymore, dont come back" Objective - Results Result Diagrams: 07/20/18 06:15 07/21/18 06:10 Recent Labs: Laboratory Last Values WBC 10.6 Th/cmm (4.8-10.8) D 07/20/18 06:15 RBC 3.32 Mil/cmm (3.80-5.10) L 07/20/18 06:15 Hgb 10.3 gm/dL (12-16) L 07/20/18 06:15 Hct 30.3 % (41.0-60) L 07/20/18 06:15 MCV 91.5 fl (81-100) 07/20/18 06:15 MCH 31.2 pg (27.0-31.0) H 07/20/18 06:15 MCHC Differential 34.1 pg (28.0-36.0) 07/20/18 06:15 RDW 14.9 % (11.5-20.0) 07/20/18 06:15 Plt Count 332 Th/cmm (150-400) 07/20/18 06:15 MPV 7.7 fl 07/20/18 06:15 Neutrophils % 53.9 % (40.0-80.0) 07/20/18 06:15 Lymphocytes % 25.8 % (20.0-50.0) 07/20/18 06:15 Monocytes % 9.2 % (2.0-10.0) 07/20/18 06:15 Eosinophils % 8.0 % (0.0-5.0) H 07/20/18 06:15 Basophils % 3.1 % (0.0-2.0) H 07/20/18 06:15 PT 10.8 SECONDS (9.5-11.5) 07/17/18 19:20 INR 1.04 (0.5-1.4) 07/17/18 19:20 Sodium 127 mEq/L (136-145) L 07/21/18 06:10 Potassium 4.7 mEq/L (3.5-5.1) 07/21/18 06:10 Chloride 89 mEq/L (98-107) L 07/21/18 06:10 Carbon Dioxide 30.7 mEq/L (21.0-31.0) 07/21/18 06:10 Anion Gap 12.0 (7.0-16.0) 07/21/18 06:10 BUN 12 mg/dL (7-25) 07/21/18 06:10 Creatinine 0.6 mg/dL (0.6-1.2) 07/21/18 06:10 Est GFR ( Amer) > 60.0 ml/min (>90) 07/21/18 06:10 Est GFR (Non-Af Amer) > 60.0 ml/min 07/21/18 06:10 BUN/Creatinine Ratio 20.0 07/21/18 06:10 Glucose 422 mg/dL (70-105) H D 07/21/18 06:10 Calcium 8.4 mg/dL (8.6-10.3) L 07/21/18 06:10 Phosphorus 6.2 mg/dL (2.5-5.0) H 07/21/18 06:10 Magnesium 2.2 mg/dL (1.9-2.7) 07/21/18 06:10 Iron 47 ug/dL (27-159) 07/19/18 06:15 TIBC 157 ug/dL (250-450) L 07/19/18 06:15 Iron Saturation 30 % (15-55) 07/19/18 06:15 Unsaturated IBC 110 ug/dL (131-425) L 07/19/18 06:15 Total Bilirubin 0.3 mg/dL (0.3-1.0) 07/21/18 06:10 AST 10 U/L (13-39) L 07/21/18 06:10 ALT 4 U/L (7-52) L 07/21/18 06:10 Alkaline Phosphatase 93 U/L (34-104) 07/21/18 06:10 Troponin I 0.02 ng/mL (0.01-0.05) 07/17/18 19:20 B-Natriuretic Peptide 10.1 pg/mL (5.0-100.0) 07/17/18 19:20 Total Protein 5.4 gm/dL (6.0-8.3) L 07/21/18 06:10 Albumin 2.6 gm/dL (3.7-5.3) L 07/21/18 06:10 Globulin 2.8 gm/dL 07/21/18 06:10 Albumin/Globulin Ratio 0.9 (1.0-1.8) L 07/21/18 06:10 Prealbumin 8 mg/dL (10-36) L 07/19/18 06:15 Triglycerides 60 mg/dL (<150) 07/19/18 06:15 Cholesterol 81 mg/dL (<200) 07/19/18 06:15 Free T3 1.2 pg/mL (2.0-4.4) L 07/19/18 06:15 TSH 0.38 uIU/ml (0.34-5.60) 07/19/18 06:15 - Physical Exam Vitals and I&O: Vital Signs Temp 96.5 F 07/21/18 08:00 Pulse 88 07/21/18 08:00 Resp 18 07/21/18 08:00 BP 90/61 07/21/18 08:00 Pulse Ox 95 07/21/18 08:00 Intake & Output 07/20/18 07/21/18 07/21/18 18:59 06:59 18:59 Intake Total 850 1110 Output Total 1000 300 Balance -150 810 Weight (lbs) 58.06 kg 58.513 kg Intake: Intake, IV Amount 50 cefTRIAXone 1 gm In 50 Sodium Chloride 0.9% 50 ml @ 100 mls/hr IV Q24HR [facility] Rx#:[id number] Oral 800 200 Tube Feeding 70 TPN/PPN 840 Output: Urine 1000 Stool 300 Other: # Voids 3 3 Stool Characteristics Soft Soft Liquid Liquid Weight Source Bedscale Bedscale Active Medications: Current Medications Acetaminophen (Tylenol Extra Strength) 500 mg PO Q4H PRN PRN Reason: Pain (Mild) 1-3 Stop: 09/18/18 20:38 Last Admin: 07/20/18 20:42 Dose: 500 mg Acetaminophen/Hydrocodone Bitart ([place] 10 Mg/325 Mg) 1 tab PO Q4HR PRN PRN Reason: Pain (Moderate) Stop: 09/15/18 20:55 Last Admin: 07/20/18 06:22 Dose: 1 tab Al Hydrox/Mg Hydrox/Simethicone (Maalox) 30 ml PO Q6HR PRN PRN Reason: Heartburn Stop: 09/15/18 20:55 Last Admin: 07/19/18 02:27 Dose: 30 ml Calamine/Phenol (Calmoseptine) 1 appl TP QID PRN PRN Reason: Skin Irritation Stop: 09/17/18 15:08 Calcium Carbonate (Os-Cristofer) 1,000 mg PO BID [facility] Stop: 09/16/18 16:59 Last Admin: 07/20/18 17:31 Dose: Not Given Clonazepam (Klonopin) 0.5 mg PO BID [facility]; Protocol Stop: 09/17/18 08:59 Last Admin: 07/20/18 17:31 Dose: 0.5 mg Fludrocortisone Acetate (Florinef) 0.1 mg PO DAILY [facility] Stop: 09/15/18 20:59 Last Admin: 07/20/18 10:32 Dose: 0.1 mg Fluvoxamine Maleate (Luvox) 25 mg PO BID [facility]; Protocol Stop: 09/15/18 20:59 Last Admin: 07/20/18 17:33 Dose: 25 mg Ceftriaxone Sodium 1 gm/ (Sodium Chloride) 50 mls @ 100 mls/hr IV Q24HR [facility] Stop: 09/15/18 09:59 Last Infusion: 07/20/18 11:15 Dose: Infused Sodium Chloride (Nacl 0.9%) 1,000 mls @ 10 mls/hr IV .Q24H [facility] Stop: 09/18/18 15:59 Last Admin: 07/20/18 17:32 Dose: 10 mls/hr Multivitamins/Minerals 5 ml/Potassium Phosphate 9 mmole/Chromium/Copper/ Manganese/Zinc 1.12 ml/ Sodium Chloride 150 meq/ Magnesium Sulfate 5 meq/ Potassium Acetate 61 meq/Potassium Chloride 30 meq/Calcium Gluconate 1 gm/ Dextrose/ Amino Acids/Electrolytes/ Fat Emulsion Intravenous/ Sterile Water 1, 680 mls @ 70 mls/hr IV .Q24H [facility] Stop: 08/18/18 15:59 Last Admin: 07/20/18 17:32 Dose: 70 mls/hr Metoclopramide HCl (Reglan) 5 mg PO TID PRN PRN Reason: Nausea / Vomiting Stop: 09/15/18 20:55 Last Admin: 07/19/18 14:24 Dose: 5 mg Midodrine (Proamatine) 10 mg PO BID [facility] Stop: 09/17/18 08:59 Last Admin: 07/20/18 17:30 Dose: 10 mg Miscellaneous (Tpn Per Pharmacy) 1 ea MC PRN PRN PRN Reason: PROTOCOL Stop: 09/16/18 18:26 Ondansetron HCl (Zofran) 4 mg IV Q6H PRN PRN Reason: Nausea / Vomiting Stop: 09/16/18 18:17 Last Admin: 07/19/18 17:12 Dose: 4 mg Quetiapine Fumarate (Seroquel) 100 mg PO DAILY [facility]; Protocol Stop: 09/15/18 20:59 Last Admin: 07/20/18 10:33 Dose: 100 mg Quetiapine Fumarate (Seroquel) 300 mg PO HS [facility]; Protocol Stop: 09/17/18 20:59 Last Admin: 07/20/18 20:42 Dose: 300 mg Sodium Chloride (Nacl Tab) 2 gm PO BID [facility] Stop: 09/16/18 16:59 Last Admin: 07/20/18 17:31 Dose: Not Given Trazodone HCl (Desyrel) 200 mg PO HS [facility]; Protocol Stop: 09/16/18 22:11 Last Admin: 07/20/18 20:42 Dose: 200 mg General: Alert, Oriented x3 Cardiovascular: Regular rate Lungs: Clear to auscultation Abdomen: Bowel sounds, Soft, Other, no Tender, no Hepatomegaly, no Distended, no Rebound, no Mass Extremities: no Clubbing Psych/Mental Status: Mental status NL Assessment/Plan - Assessment Assessment: # Hx UC, s/p total colectomy with ileostomy. # Ileostomy revision in 2018 at [facility] due to hernia # Anorexia # Chronic pain, narcotic bowel syndrome UC is not active, and she does not have a colon left. No evidence of transition to Crohn's disease. Pt with chronic pain, opiate dependence. Her pain threshold is altered from chronic use, she is effectively addicted. Poor po intake is chronic issue for this pt. We have offered her feeding tubes in the past, and again now. She is adamantly against it. Plan: - Pt does not want our service to see her any longer, not willing to tell me why this is. - cont to encourage po intake. She does not want a G tube or NG tube - she has refused megase - no need for steroids, UC is not active - reduce opiate intake if possible - PPN for now until she is taking better po GI to see as needed, or if the patient changes her mind on our consultation services. For now, she has asked we do not round on her.
[2018-07-21] MEDS: Multivitamin w/ Minerals Tab PO SCH ×2 (08:57→09:10)
[2018-07-21] MEDS: Acetaminophen 500 MG TAB PO PRN (08:59)
[2018-07-21] MEDS ORDERED: INSULIN ASPART SLIDING SCALE 100 UNITS/ML UNIT SUBQ SCH (09:00)
[2018-07-21] MEDS: cefTRIAXone 1 GM in Sodium Chloride 0.9% 50 ML IV SCH (09:30)
[2018-07-21] MEDS: INSULIN LISPRO SLIDING SCALE 100 UNITS/ML UNIT SUBQ SCH ×2 (12:41→18:41)
--- NOTE | 2018-07-21 16:01 | Progress Notes ---
DATE: 07/20/2018 LOCATION: [facility], room 18, bed D. SUBJECTIVE: The patient is conscious, alert, on TPN. No complaint of shortness of breath or vomiting. The patient is still anorexic, not eating. OBJECTIVE: VITAL SIGNS: Temperature 97.8, pulse 89, blood pressure improved to 96/66. Yesterday's intake 1050. HEART: Regular. LUNGS: Good air entry. ABDOMEN: Soft. EXTREMITIES: No edema. LABORATORY DATA: Hemoglobin 10.3, WBC 10.6, platelet count 332,000. Sodium 128, potassium improved from 2.8 to 4, chloride 89, CO2 32, BUN 9, creatinine 0.7, phosphorus 2.4, calcium 8.4. LFTs are normal. ASSESSMENT: 1. Hyponatremia, improving. 2. Hypokalemia, improving. 3. Malnutrition, on TPN. 4. Ulcerative colitis. 5. Anemia. 6. Hypotension, improving. PLAN: We will increase KCl in TPN. Continue TPN and Florinef. Also continue the patient on midodrine. If patient's blood pressure falls, then we will increase midodrine, Zack p.r.edmundo, lab in 2 days. Discussed with nurse. JOB# [id number]
[2018-07-21] MEDS: TRACE ELEMENT IV SCH (16:32)
[2018-07-21] MEDS: [UNRECOGNIZED DRUG - OTHER] IV SCH (16:32)
[2018-07-21] MEDS: POTASSIUM PHOSPHATE IV SCH (16:32)
[2018-07-21] MEDS: MULTIVITAMIN IV SCH (16:32)
[2018-07-21] MEDS: Sodium Chloride 0.9% 1,000 ML IV SCH (16:43)
--- NOTE | 2018-07-21 22:21 | General Progress Note ---
Subjective - Review of Systems Service Date: 07/21/18 Subjective: Late entry Patient was seen earlier today No new concern was reported Objective - Results Result Diagrams: 07/20/18 06:15 07/21/18 06:10 Recent Labs: Laboratory Last Values WBC 10.6 Th/cmm (4.8-10.8) D 07/20/18 06:15 RBC 3.32 Mil/cmm (3.80-5.10) L 07/20/18 06:15 Hgb 10.3 gm/dL (12-16) L 07/20/18 06:15 Hct 30.3 % (41.0-60) L 07/20/18 06:15 MCV 91.5 fl (81-100) 07/20/18 06:15 MCH 31.2 pg (27.0-31.0) H 07/20/18 06:15 MCHC Differential 34.1 pg (28.0-36.0) 07/20/18 06:15 RDW 14.9 % (11.5-20.0) 07/20/18 06:15 Plt Count 332 Th/cmm (150-400) 07/20/18 06:15 MPV 7.7 fl 07/20/18 06:15 Neutrophils % 53.9 % (40.0-80.0) 07/20/18 06:15 Lymphocytes % 25.8 % (20.0-50.0) 07/20/18 06:15 Monocytes % 9.2 % (2.0-10.0) 07/20/18 06:15 Eosinophils % 8.0 % (0.0-5.0) H 07/20/18 06:15 Basophils % 3.1 % (0.0-2.0) H 07/20/18 06:15 PT 10.8 SECONDS (9.5-11.5) 07/17/18 19:20 INR 1.04 (0.5-1.4) 07/17/18 19:20 Sodium 127 mEq/L (136-145) L 07/21/18 06:10 Potassium 4.7 mEq/L (3.5-5.1) 07/21/18 06:10 Chloride 89 mEq/L (98-107) L 07/21/18 06:10 Carbon Dioxide 30.7 mEq/L (21.0-31.0) 07/21/18 06:10 Anion Gap 12.0 (7.0-16.0) 07/21/18 06:10 BUN 12 mg/dL (7-25) 07/21/18 06:10 Creatinine 0.6 mg/dL (0.6-1.2) 07/21/18 06:10 Est GFR ( Amer) > 60.0 ml/min (>90) 07/21/18 06:10 Est GFR (Non-Af Amer) > 60.0 ml/min 07/21/18 06:10 BUN/Creatinine Ratio 20.0 07/21/18 06:10 Glucose 422 mg/dL (70-105) H D 07/21/18 06:10 POC Glucose 168 MG/DL (70 - 105) H 07/21/18 18:29 Calcium 8.4 mg/dL (8.6-10.3) L 07/21/18 06:10 Phosphorus 6.2 mg/dL (2.5-5.0) H 07/21/18 06:10 Magnesium 2.2 mg/dL (1.9-2.7) 07/21/18 06:10 Iron 47 ug/dL (27-159) 07/19/18 06:15 TIBC 157 ug/dL (250-450) L 07/19/18 06:15 Iron Saturation 30 % (15-55) 07/19/18 06:15 Unsaturated IBC 110 ug/dL (131-425) L 07/19/18 06:15 Total Bilirubin 0.3 mg/dL (0.3-1.0) 07/21/18 06:10 AST 10 U/L (13-39) L 07/21/18 06:10 ALT 4 U/L (7-52) L 07/21/18 06:10 Alkaline Phosphatase 93 U/L (34-104) 07/21/18 06:10 Troponin I 0.02 ng/mL (0.01-0.05) 07/17/18 19:20 B-Natriuretic Peptide 10.1 pg/mL (5.0-100.0) 07/17/18 19:20 Total Protein 5.4 gm/dL (6.0-8.3) L 07/21/18 06:10 Albumin 2.6 gm/dL (3.7-5.3) L 07/21/18 06:10 Globulin 2.8 gm/dL 07/21/18 06:10 Albumin/Globulin Ratio 0.9 (1.0-1.8) L 07/21/18 06:10 Prealbumin 8 mg/dL (10-36) L 07/19/18 06:15 Triglycerides 60 mg/dL (<150) 07/19/18 06:15 Cholesterol 81 mg/dL (<200) 07/19/18 06:15 Free T3 1.2 pg/mL (2.0-4.4) L 07/19/18 06:15 TSH 0.38 uIU/ml (0.34-5.60) 07/19/18 06:15 - Physical Exam Vitals and I&O: Vital Signs Temp 97.8 F 07/21/18 17:19 Pulse 101 07/21/18 17:19 Resp 18 07/21/18 17:19 BP 99/61 07/21/18 17:19 Pulse Ox 92 07/21/18 17:19 Intake & Output 07/21/18 07/21/18 07/22/18 06:59 18:59 06:59 Intake Total 3970 Output Total 1999 Balance 1970 Weight (lbs) 58.513 kg Intake: Intake, IV Amount 1660 Multivitamin Inj 5 ml 1610 Potassium Phosphate 9 mmole Trace Element 1.12 ml Sodium Chloride 150 meq Magnesium Sulfate 5 meq Potassium Acetate 61 meq Potassium Chloride 30 meq Calcium Gluconate 1 gm In Dextrose 70% 97. 0485 ml In Amino Acids 8. 5% 532.67 ml In Intralipids 20% 200 ml In Water, Sterile 746.93 ml @ 70 mls/hr IV .Q24H SWAPNIL Rx#:[id number] cefTRIAXone 1 gm In 50 Sodium Chloride 0.9% 50 ml @ 100 mls/hr IV Q24HR SWAPNIL Rx#:[id number] Oral 1400 Tube Feeding 70 TPN/PPN 840 Output: Stool 1999 Other: # Voids 3 Stool Characteristics Soft Liquid Weight Source Bedscale General: Alert, Oriented x3 Cardiovascular: Regular rate Lungs: Clear to auscultation Abdomen: Bowel sounds, Soft, Other, no Tender, no Hepatomegaly, no Distended, no Rebound, no Mass Extremities: no Clubbing Psych/Mental Status: Mental status NL Assessment/Plan - Assessment Assessment: Hyponatremia Poor oral intake Weakness Ulcerative colitis Ileostomy in place Chronic pain syndrome Mental health disorder - Plan Plan: Nephrology recommended TPN Sodium slowly improving Continue current treatment GI input noted and appreciated Patient doesn't want G tube LTAC transer awating Nutritional Asmnt/Malnutr-PDOC - Dietary Evaluation Malnutrition Findings (Please click <Entered> for more info): Nutritional Asmnt/Malnutrition Start: 07/20/18 16: 35 Text: Status: Complete Freq: Protocol: Document 07/20/18 16:35 LCHENG (Rec: 07/20/18 16:45 LCHENG [id number]) Nutritional Asmnt/Malnutrition Patient General Information Nutritional Screening High Risk Consult Diagnosis severe hyponatremia Pertinent Medical Hx/Surgical Hx COPD, DM, HTN, CHF, colitis Subjective Information Consult received for IA/ intertigines dermatitis buttocks. Pt seen sleeping in bed at time of visit, not answering RD greeting. Per DAYLIGHT DRILLER , pt did not want to eat at breakfast and lunch as well, just ask [employer] DRILLER to leave the tray at table. Per nurse, pt refused megace and Gtube. Pt started on TPN today. Per EMR, PO intake 25-50% yesterday. Current Diet Order/ Nutrition Support regular Pertinent Medications os-nikolay, seroqeul, nacl 0.9%, nacl tab, sidum phosphate Pertinent Labs 07/20 Na 128, Cl 89, Ca 8.4, Phos 2.4, alb 2.8 07/19 na 129, K 2.8, CL 91, Ca 7.3, Mg 1.4, alb 2.6 Nutritional Hx/Data Height 1.57 m Height (Calculated Centimeters) 157.5 Current Weight (lbs) 58.06 kg Weight (Calculated Kilograms) 58.1 Weight (Calculated Grams) 93383.8 [place] Body Weight 105 Body Mass Index (BMI) 23.3 Weight Status Approriate GI Symptoms GI Symptoms None Last BM not indicated Difficult in: None Skin Integrity/Comment: reddened to right buttocks and left buttocks Current %PO Poor (25-49%) Estimated Nutritional Goals BEE in Kcals: Using Current wt Calories/Kcals/Kg 25-30 Kcals Calculated 8416-8227 Protein: Using Current wt Protein g/k Protein Calculated 58 Fluid: ml 1450-1740ml (1ml/kcal) Nutritional Problem 2. Problem Problem altered nutrition related labs Etiology electrolytes imbalance Signs/Symptoms: Na 129, Cl 89, Ca 8.4, Phos 2. 4 1. Problem Problem inadequate food intake Etiology poor appetite Signs/Symptoms: PO intake < 50% Malnutrition Alert Is there a minimum of two criteria No selected? Query Text:Check all the applicable criteria. A minimum of two criteria are recommended for diagnosis of either severe or non-severe malnutrition. Malnutrition Related to Morbid Obesity Malnutrition related to morbid obesity No Intervention/Recommendation Comments 1. Continue with regular diet as ordered. Nurses to encourage oral intake. MD to replace electrolytes. 2. Continue with TPN to supplement nutrition intake if PO intake low 2. Monitor PO intake, nutrition support, wt, labs and skin integrity 3. F/U as high risk in 2-3 days Expected Outcomes/Goals Expected Outcomes/Goals 1. PO intake to improve, Pt to meet at least 75% of nutritional needs. 2. Wt stability, skin to remain intact, labs to approach WNL.
--- NOTE | 2018-07-22 10:38 | Progress Notes ---
DATE: LOCATION: [facility], room 18, bed D. SUBJECTIVE: The patient is conscious, alert. The patient feels stronger. No complaint. No vomiting or diarrhea. No fever. The patient is trying to sit up in the bed, but feeling tired and dizzy. Blood pressure is improving. The patient is on TPN. OBJECTIVE: VITAL SIGNS: Blood pressure 101/67, which is significantly improved; heart rate 93; temperature 98.8; respirations 18. Yesterday's intake 505 which seems to be incorrect. Urine output more than 700-800 mL. HEART: Regular. LUNGS: Good air entry. ABDOMEN: Soft. Bowel sounds normal. EXTREMITIES: No edema. LABORATORY DATA: Sodium 127, potassium 4.7, carbon dioxide 30, BUN and creatinine normal, calcium 8.4, phosphorus 6.2, albumin 2.6. ASSESSMENT: 1. Hypotension, improving. 2. Hyponatremia, improving. 3. Acute kidney injury, improving. 4. Hyperphosphatemia. 5. Ulcerative colitis. 6. Anemia. 7. Malnutrition, on TPN. PLAN: Decrease sodium phosphate in the TPN. Continue rest of the medication. Check CMP, phosphorus, magnesium 2 days from today. I will discuss this with the pharmacy. JOB# [id number]
== END 2018-07-21 20:35 | DRG 682 ==
LOC: ER 18:27 → TELE 20:54
PROVIDERS: ADMIT Family Medicine; ATTEND Family Medicine
DX: N17.9 Acute kidney failure, unspecified (principal); E43 Unspecified severe protein-calorie malnutrition; J18.9 Pneumonia, unspecified organism; E87.1 Hypo-osmolality and hyponatremia; K51.90 Ulcerative colitis, unspecified, without complications; J44.0 Chronic obstructive pulmonary disease with (acute) lower respiratory infection; I13.0 Hypertensive heart and chronic kidney disease with heart failure and stage 1 through stage 4 chronic kidney disease, or unspecified chronic kidney disease; R64 Cachexia; G89.4 Chronic pain syndrome; I95.9 Hypotension, unspecified; D64.9 Anemia, unspecified; I50.9 Heart failure, unspecified; E78.5 Hyperlipidemia, unspecified; F03.90 Unspecified dementia, unspecified severity, without behavioral disturbance, psychotic disturbance, mood disturbance, and anxiety; F17.210 Nicotine dependence, cigarettes, uncomplicated; E03.9 Hypothyroidism, unspecified; E87.6 Hypokalemia; N18.9 Chronic kidney disease, unspecified; E11.22 Type 2 diabetes mellitus with diabetic chronic kidney disease; R10.9 Unspecified abdominal pain; Z68.24 Body mass index [BMI] 24.0-24.9, adult; Z88.1 Allergy status to other antibiotic agents; Z90.49 Acquired absence of other specified parts of digestive tract; Z88.8 Allergy status to other drugs, medicaments and biological substances
CPT/HCPCS: 36415-UA; 71045-TC; 80048-TC; 80053-TC; 82465-TC; 82948-90; 83036-90; 83540-90; 83550-90; 83735-TC; 83880-TC; 84100-TC; 84134-90; 84443-TC; 84478-TC; 84479-90; 84484-TC; 85025-TC; 85610-TC; 90799; 93005; 94760; 96374; A4217; J0610; J0696; J1815; J2405; J3475; J3480; J7030; J7131; X6598; Z7610